=== PATIENT | female | born 1995 ===

== ENCOUNTER 2023-05-21 09:15 | Inpatient (IN) | payer MEDICAID ==
[~2023-05-21] VITALS: Ht 170.2 cm; Wt 61.2 kg
[2023-05-21] MEDS ORDERED: HALOPERIDOL LACTATE 5 MG/ML VIAL IM ONE (13:15)
[2023-05-21] MEDS ORDERED: DiphenhydrAMINE HCL 50 MG/ML VIAL IM ONE (13:15)
[2023-05-21] MEDS ORDERED: LORazepam 2 MG/ML VIAL IM ONE (13:15)
[2023-05-21 14:57] LABS: COVID AG,FIA SOURCE NASAL SWAB
[2023-05-21 15:22] LABS: SARS-COV2 (COVID) ANTIGEN,FIA Negative (Negative)
[2023-05-21 18:30] VITALS: RESP 18
[2023-05-21 21:40] VITALS: RESP 18
[2023-05-22] MEDS ORDERED: PETROLATUM,WHITE 28 GM JELLY TP PRN (05:15)
[2023-05-22] MEDS ORDERED: IBUPROFEN 600 MG TABLET PO PRN (05:15)
[2023-05-22] MEDS ORDERED: DOCUSATE SODIUM 100 MG CAPSULE PO PRN (05:15)
[2023-05-22] MEDS ORDERED: BENZOCAINE/MENTHOL LOZENGE PO PRN (05:15)
[2023-05-22] MEDS ORDERED: CloNIDine HCL 0.1 MG TABLET PO PRN (05:15)
[2023-05-22] MEDS ORDERED: MAGNESIUM HYDROXIDE SUSPENSION 30 ML UDCUP PO PRN (05:15)
[2023-05-22] MEDS ORDERED: LOPERAMIDE HCL 2 MG CAPSULE PO PRN (05:15)
[2023-05-22] MEDS ORDERED: OMEPRAZOLE 20 MG CAPSULE PO PRN (05:15)
[2023-05-22] MEDS ORDERED: ONDANSETRON HCL 4 MG TABLET PO PRN (05:15)
[2023-05-22] MEDS ORDERED: BACITRACIN 28 GM OINTMENT TP PRN (05:15)
[2023-05-22] MEDS ORDERED: ACETAMINOPHEN 325 MG TABLET PO PRN (05:15)
[2023-05-22] MEDS ORDERED: MAG HYDROX/ALUMINUM HYD/SIMETH ES 30 ML SUSPENSION UDCUP PO PRN (05:15)
[2023-05-22 08:30] VITALS: RESP 20; TEMP 97.3
[2023-05-22] MEDS: LITHIUM CARBONATE 300 MG CAPSULE PO SCH (16:23)
[2023-05-22] MEDS: DIVALPROEX SODIUM 500 MG DR TABLET PO SCH (16:23)
[2023-05-22] MEDS: RisperiDONE 1 MG TABLET PO SCH (16:23)
[2023-05-22 20:39] VITALS: RESP 18
[2023-05-23] MEDS: RisperiDONE 1 MG TABLET PO SCH ×3 (08:18→17:00)
[2023-05-23] MEDS: LITHIUM CARBONATE 300 MG CAPSULE PO SCH ×3 (08:18→17:00)
[2023-05-23] MEDS: DIVALPROEX SODIUM 500 MG DR TABLET PO SCH ×3 (08:18→17:00)
[2023-05-23 09:14] VITALS: RESP 18; TEMP 98
[2023-05-23] MEDS ORDERED: HALOPERIDOL LACTATE 5 MG/ML VIAL IM ONE (13:30)
[2023-05-23] MEDS ORDERED: LORazepam 2 MG/ML VIAL IM ONE (13:30)
[2023-05-23] MEDS ORDERED: DiphenhydrAMINE HCL 50 MG/ML VIAL IM ONE (13:30)
[2023-05-23] MEDS ORDERED: HALOPERIDOL LACTATE 5 MG/ML VIAL ONE (13:37)
[2023-05-23] MEDS ORDERED: DiphenhydrAMINE HCL 50 MG/ML VIAL ONE (13:37)
[2023-05-23] MEDS ORDERED: LORazepam 2 MG/ML VIAL ONE (13:37)
[2023-05-23 20:30] VITALS: PULSE 75; RESP 17; TEMP 98
[2023-05-24 09:45] VITALS: RESP 18
[2023-05-24] MEDS: DIVALPROEX SODIUM 500 MG DR TABLET PO SCH ×2 (12:30→18:32)
[2023-05-24] MEDS: LITHIUM CARBONATE 300 MG CAPSULE PO SCH ×2 (12:30→18:32)
[2023-05-24] MEDS: RisperiDONE 1 MG TABLET PO SCH ×2 (12:30→18:32)
[2023-05-24 20:09] VITALS: RESP 18
[2023-05-25 08:52] VITALS: RESP 17; TEMP 97.8
[2023-05-25] MEDS: DIVALPROEX SODIUM 500 MG DR TABLET PO SCH ×2 (09:02→16:07)
[2023-05-25] MEDS: LITHIUM CARBONATE 300 MG CAPSULE PO SCH ×2 (09:02→16:07)
[2023-05-25] MEDS: RisperiDONE 1 MG TABLET PO SCH ×2 (09:02→16:07)
[2023-05-25] MEDS: HALOPERIDOL 5 MG TABLET PO PRN (15:02)
[2023-05-25] MEDS: LORazepam 2 MG TABLET PO PRN (15:02)
[2023-05-25 20:07] VITALS: RESP 18; TEMP 97.9
[2023-05-26] MEDS: DIVALPROEX SODIUM 500 MG DR TABLET PO SCH ×2 (08:52→16:43)
[2023-05-26] MEDS: LITHIUM CARBONATE 300 MG CAPSULE PO SCH ×2 (08:52→16:43)
[2023-05-26] MEDS: RisperiDONE 1 MG TABLET PO SCH ×2 (08:52→16:43)
[2023-05-26 09:00] VITALS: BP 108/60; PULSE 89; RESP 18; TEMP 97.2
[2023-05-26] MEDS: HALOPERIDOL 5 MG TABLET PO PRN (15:20)
[2023-05-26] MEDS: LORazepam 2 MG TABLET PO PRN (15:20)
[2023-05-26 20:53] VITALS: RESP 18
[2023-05-27] MEDS: DIVALPROEX SODIUM 500 MG DR TABLET PO SCH ×2 (08:36→16:16)
[2023-05-27] MEDS: RisperiDONE 1 MG TABLET PO SCH ×2 (08:36→16:17)
[2023-05-27] MEDS: LITHIUM CARBONATE 300 MG CAPSULE PO SCH ×2 (08:36→16:17)
[2023-05-27 10:43] VITALS: BP 110/64; PULSE 84; RESP 18; TEMP 97
[2023-05-27] MEDS: LORazepam 2 MG TABLET PO PRN (15:31)
[2023-05-27] MEDS: HALOPERIDOL 5 MG TABLET PO PRN (15:31)
[2023-05-27] MEDS: NICOTINE 21 MG/24 HOUR PATCH TD SCH (16:16)
[2023-05-27 21:19] VITALS: BP 118/72; PULSE 81; RESP 19; TEMP 97.5
[2023-05-28 08:16] VITALS: BP 110/70; PULSE 80; RESP 18; TEMP 97.8
[2023-05-28] MEDS: DIVALPROEX SODIUM 500 MG DR TABLET PO SCH ×2 (08:27→16:49)
[2023-05-28] MEDS: RisperiDONE 1 MG TABLET PO SCH ×2 (08:27→16:49)
[2023-05-28] MEDS: NICOTINE 21 MG/24 HOUR PATCH TD SCH (08:27)
[2023-05-28] MEDS: LITHIUM CARBONATE 300 MG CAPSULE PO SCH ×2 (08:27→16:49)
[2023-05-28] MEDS: LORazepam 2 MG TABLET PO PRN (10:22)
[2023-05-28] MEDS: HALOPERIDOL 5 MG TABLET PO PRN (10:22)
[2023-05-28 21:35] VITALS: RESP 18
[2023-05-29] MEDS: DIVALPROEX SODIUM 500 MG DR TABLET PO SCH ×2 (08:10→16:10)
[2023-05-29] MEDS: NICOTINE 21 MG/24 HOUR PATCH TD SCH (08:10)
[2023-05-29] MEDS: LITHIUM CARBONATE 300 MG CAPSULE PO SCH ×2 (08:10→16:10)
[2023-05-29] MEDS: RisperiDONE 1 MG TABLET PO SCH ×2 (08:10→16:10)
[2023-05-29 08:27] VITALS: BP 108/59; PULSE 91; RESP 18; TEMP 97.6
[2023-05-29 12:24] LABS: APPEARANCE,URINE CLEAR (CLEAR); BILIRUBIN,URINE NEGATIVE (NEGATIVE); COLOR,URINE COLORLESS (YELLOW); GLUCOSE, URINE (UA) NEGATIVE (NEGATIVE); KETONES,URINE NEGATIVE (NEGATIVE); LEUKOCYTE ESTERASE ,URINE NEGATIVE (NEGATIVE); NITRATE,URINE NEGATIVE (NEGATIVE); OCCULT BLOOD,URINE NEGATIVE (NEGATIVE); PROTEIN,URINE NEGATIVE (NEGATIVE); SPECIFIC GRAVITIY, URINE 1.012 (1.003-1.030); UROBILINOGEN,URINE <=1.0 mg/dL (<=1.0)
[2023-05-29 12:30] LABS: ALCOHOL, URINE DRUG SCREEN NEGATIVE (NEGATIVE); AMPHET/METH SCREEN,URINE NEGATIVE (NEGATIVE); BARBITURATE SCREEN, URINE NEGATIVE (NEGATIVE); BENZODIAZEPINES SCREEN,URINE NEGATIVE (NEGATIVE); CANNABINOID SCREEN,URINE NEGATIVE (NEGATIVE); COCAINE SCREEN,URINE NEGATIVE (NEGATIVE); METHADONE SCREEN, URINE NEGATIVE (NEGATIVE); OPIATE SCREEN,URINE NEGATIVE (NEGATIVE); PHENCYCLIDINE SCREEN,URINE NEGATIVE (NEGATIVE)
[2023-05-29 12:52] LABS: HCG,QUAL URINE NEGATIVE (NEGATIVE)
[2023-05-29] MEDS: HALOPERIDOL 5 MG TABLET PO PRN (13:16)
[2023-05-29] MEDS: LORazepam 2 MG TABLET PO PRN (13:16)
[2023-05-29 20:51] VITALS: RESP 18
[2023-05-30] MEDS: HALOPERIDOL 5 MG TABLET PO PRN (01:20)
[2023-05-30] MEDS: LORazepam 2 MG TABLET PO PRN (01:20)
[2023-05-30] MEDS: RisperiDONE 1 MG TABLET PO SCH ×2 (08:37→16:34)
[2023-05-30] MEDS: DIVALPROEX SODIUM 500 MG DR TABLET PO SCH ×2 (08:37→16:34)
[2023-05-30] MEDS: LITHIUM CARBONATE 300 MG CAPSULE PO SCH ×2 (08:37→16:34)
[2023-05-30] MEDS: NICOTINE 21 MG/24 HOUR PATCH TD SCH (08:46)
[2023-05-30 09:08] VITALS: BP 105/45; PULSE 92; RESP 18; TEMP 98.2
[2023-05-30 20:27] VITALS: RESP 18
[2023-05-31 08:00] VITALS: BP 98/70; PULSE 61; RESP 18; TEMP 97.8
[2023-05-31] MEDS: RisperiDONE 1 MG TABLET PO SCH ×2 (08:32→16:12)
[2023-05-31] MEDS: LITHIUM CARBONATE 300 MG CAPSULE PO SCH ×2 (08:32→16:12)
[2023-05-31] MEDS: DIVALPROEX SODIUM 500 MG DR TABLET PO SCH ×2 (08:33→16:12)
[2023-05-31] MEDS: LORazepam 2 MG TABLET PO PRN ×2 (08:33→23:04)
[2023-05-31] MEDS: NICOTINE 21 MG/24 HOUR PATCH TD SCH (08:33)
[2023-05-31 21:25] VITALS: BP 100/70; PULSE 65; RESP 17; TEMP 97.9
[2023-05-31] MEDS: HALOPERIDOL 5 MG TABLET PO PRN (23:04)
[2023-06-01] MEDS ORDERED: LORazepam 2 MG/ML VIAL ONE (01:10)
[2023-06-01] MEDS ORDERED: HALOPERIDOL LACTATE 5 MG/ML VIAL ONE (01:11)
[2023-06-01] MEDS ORDERED: DiphenhydrAMINE HCL 50 MG/ML VIAL ONE (01:12)
[2023-06-01] MEDS ORDERED: HALOPERIDOL LACTATE 5 MG/ML VIAL IM ONE (01:30)
[2023-06-01] MEDS ORDERED: LORazepam 2 MG/ML VIAL IM ONE (01:30)
[2023-06-01] MEDS ORDERED: DiphenhydrAMINE HCL 50 MG/ML VIAL IM ONE (01:30)
[2023-06-01 07:09] LABS: LITHIUM 0.36 mmol/L (0.60-1.20)
[2023-06-01 09:03] VITALS: RESP 18
[2023-06-01] MEDS: RisperiDONE 1 MG TABLET PO SCH ×2 (10:51→16:29)
[2023-06-01] MEDS: NICOTINE 21 MG/24 HOUR PATCH TD SCH (10:51)
[2023-06-01] MEDS: DIVALPROEX SODIUM 500 MG DR TABLET PO SCH ×2 (10:51→16:29)
[2023-06-01] MEDS: LITHIUM CARBONATE 300 MG CAPSULE PO SCH ×2 (10:51→16:29)
[2023-06-01 20:27] VITALS: RESP 19; TEMP 97.6
[2023-06-02 08:28] VITALS: BP 138/85; PULSE 68; RESP 17; TEMP 97.6
[2023-06-02] MEDS: LITHIUM CARBONATE 300 MG CAPSULE PO SCH ×2 (08:51→16:21)
[2023-06-02] MEDS: DIVALPROEX SODIUM 500 MG DR TABLET PO SCH ×2 (08:51→16:21)
[2023-06-02] MEDS: RisperiDONE 1 MG TABLET PO SCH ×2 (08:51→16:21)
[2023-06-02] MEDS: NICOTINE 21 MG/24 HOUR PATCH TD SCH (08:52)
[2023-06-02] MEDS: HALOPERIDOL 5 MG TABLET PO PRN (12:51)
[2023-06-02] MEDS: LORazepam 2 MG TABLET PO PRN (12:51)
[2023-06-02 21:45] VITALS: RESP 18
[2023-06-03] MEDS: RisperiDONE 1 MG TABLET PO SCH ×2 (08:34→17:15)
[2023-06-03] MEDS: DIVALPROEX SODIUM 500 MG DR TABLET PO SCH ×2 (08:34→17:15)
[2023-06-03] MEDS: NICOTINE 21 MG/24 HOUR PATCH TD SCH (08:34)
[2023-06-03] MEDS: LITHIUM CARBONATE 300 MG CAPSULE PO SCH ×2 (08:34→17:15)
[2023-06-03] MEDS: LORazepam 2 MG TABLET PO PRN (08:40)
[2023-06-03 10:39] VITALS: BP 101/58; PULSE 86; RESP 18; TEMP 96.8
[2023-06-03] MEDS: ZOLPIDEM TARTRATE 10 MG TABLET PO PRN (22:15)
[2023-06-03 22:43] VITALS: BP 136/81; PULSE 91; RESP 18; TEMP 96.9
[2023-06-04] MEDS: LITHIUM CARBONATE 300 MG CAPSULE PO SCH ×3 (08:39→16:17)
[2023-06-04] MEDS: RisperiDONE 1 MG TABLET PO SCH (08:39)
[2023-06-04] MEDS: DIVALPROEX SODIUM 500 MG DR TABLET PO SCH ×2 (08:39→16:16)
[2023-06-04] MEDS: NICOTINE 21 MG/24 HOUR PATCH TD SCH (08:40)
[2023-06-04 08:42] VITALS: BP 163/72; PULSE 99; RESP 18; TEMP 97.8
[2023-06-04] MEDS: HALOPERIDOL 5 MG TABLET PO PRN (09:37)
[2023-06-04] MEDS: LORazepam 2 MG TABLET PO PRN (09:37)
[2023-06-04] MEDS: RisperiDONE 3 MG TABLET PO SCH (16:17)
[2023-06-04 22:01] VITALS: RESP 18
[2023-06-05 08:12] VITALS: BP 123/74; PULSE 90; RESP 18; TEMP 97.6
[2023-06-05] MEDS: DIVALPROEX SODIUM 500 MG DR TABLET PO SCH ×3 (08:59→16:41)
[2023-06-05] MEDS: NICOTINE 21 MG/24 HOUR PATCH TD SCH (08:59)
[2023-06-05] MEDS: RisperiDONE 3 MG TABLET PO SCH ×2 (08:59→16:41)
[2023-06-05] MEDS: LITHIUM CARBONATE 300 MG CAPSULE PO SCH ×3 (08:59→16:41)
[2023-06-05 21:27] VITALS: BP 120/80; PULSE 85; RESP 19; TEMP 98
[2023-06-06 08:31] VITALS: BP 99/60; PULSE 79; RESP 17; TEMP 97.6
[2023-06-06] MEDS: DIVALPROEX SODIUM 500 MG DR TABLET PO SCH ×3 (08:43→16:45)
[2023-06-06] MEDS: RisperiDONE 3 MG TABLET PO SCH ×2 (08:43→16:45)
[2023-06-06] MEDS: LITHIUM CARBONATE 300 MG CAPSULE PO SCH ×3 (08:43→16:45)
[2023-06-06] MEDS: NICOTINE 21 MG/24 HOUR PATCH TD SCH (08:45)
[2023-06-06] MEDS: HALOPERIDOL 5 MG TABLET PO PRN (12:01)
[2023-06-06] MEDS: LORazepam 2 MG TABLET PO PRN (12:01)
[2023-06-06] MEDS ORDERED: PALIPERIDONE PALMITATE 234 MG/1.5 ML SYRINGE IM ONE (13:30)
[2023-06-06 22:15] VITALS: RESP 18
[2023-06-07 00:33] VITALS: RESP 18; TEMP 97.6
[2023-06-07 04:14] VITALS: RESP 17; TEMP 97.7
[2023-06-07 08:16] VITALS: BP 104/51; PULSE 72; RESP 17; TEMP 98.8
[2023-06-07] MEDS: LITHIUM CARBONATE 300 MG CAPSULE PO SCH ×3 (09:07→16:28)
[2023-06-07] MEDS: DIVALPROEX SODIUM 500 MG DR TABLET PO SCH ×3 (09:07→16:28)
[2023-06-07] MEDS: RisperiDONE 3 MG TABLET PO SCH ×2 (09:08→16:28)
[2023-06-07] MEDS: NICOTINE 21 MG/24 HOUR PATCH TD SCH (09:08)
[2023-06-07 11:27] LABS: COVID AG,FIA SOURCE NASAL SWAB
[2023-06-07 12:29] LABS: SARS-COV2 (COVID) ANTIGEN,FIA Negative (Negative)
[2023-06-07 12:44] VITALS: RESP 17; TEMP 98.9
[2023-06-07 16:34] VITALS: RESP 18; TEMP 98.1
[2023-06-07] MEDS: ZOLPIDEM TARTRATE 10 MG TABLET PO PRN (20:34)
[2023-06-07 21:04] VITALS: BP 130/80; PULSE 97; RESP 18; TEMP 97.8
[2023-06-07] MEDS: HALOPERIDOL 5 MG TABLET PO PRN (22:45)
[2023-06-07] MEDS: LORazepam 2 MG TABLET PO PRN (22:45)
[2023-06-08 01:22] VITALS: RESP 18
[2023-06-08 05:41] VITALS: RESP 18
[2023-06-08 08:15] VITALS: RESP 17; TEMP 98
[2023-06-08] MEDS: DIVALPROEX SODIUM 500 MG DR TABLET PO SCH ×3 (09:26→16:22)
[2023-06-08] MEDS: RisperiDONE 3 MG TABLET PO SCH ×2 (09:26→16:22)
[2023-06-08] MEDS: NICOTINE 21 MG/24 HOUR PATCH TD SCH (09:26)
[2023-06-08] MEDS: LITHIUM CARBONATE 300 MG CAPSULE PO SCH ×3 (09:26→16:22)
[2023-06-08 14:08] VITALS: RESP 17; TEMP 98.4
[2023-06-08 16:42] VITALS: RESP 18; TEMP 97.6
[2023-06-08 20:09] VITALS: RESP 18; TEMP 96.9
[2023-06-09 00:11] VITALS: RESP 18
[2023-06-09 05:09] VITALS: RESP 18
[2023-06-09 08:13] VITALS: BP 99/55; PULSE 76; RESP 17; TEMP 98.3
[2023-06-09] MEDS: RisperiDONE 3 MG TABLET PO SCH ×2 (08:17→16:22)
[2023-06-09] MEDS: DIVALPROEX SODIUM 500 MG DR TABLET PO SCH ×3 (08:17→16:22)
[2023-06-09] MEDS: NICOTINE 21 MG/24 HOUR PATCH TD SCH (08:17)
[2023-06-09] MEDS: LITHIUM CARBONATE 300 MG CAPSULE PO SCH ×3 (08:17→16:22)
[2023-06-09 12:35] VITALS: TEMP 97.4
[2023-06-09 16:08] VITALS: RESP 18; TEMP 98.2
[2023-06-09 21:12] VITALS: RESP 18
[2023-06-10 00:24] VITALS: RESP 18
[2023-06-10 04:04] VITALS: RESP 18
[2023-06-10] MEDS: RisperiDONE 3 MG TABLET PO SCH ×2 (07:58→16:52)
[2023-06-10] MEDS: DIVALPROEX SODIUM 500 MG DR TABLET PO SCH ×3 (07:59→16:50)
[2023-06-10] MEDS: LITHIUM CARBONATE 300 MG CAPSULE PO SCH ×3 (07:59→16:50)
[2023-06-10] MEDS: NICOTINE 21 MG/24 HOUR PATCH TD SCH (08:01)
[2023-06-10] MEDS: LORazepam 2 MG TABLET PO PRN (08:01)
[2023-06-10 09:10] VITALS: BP 103/60; PULSE 96; RESP 17; TEMP 97.3
[2023-06-10 15:36] VITALS: RESP 18; TEMP 97.5
[2023-06-10 17:31] VITALS: TEMP 97.6
[2023-06-10 19:06] LABS: COVID AG,FIA SOURCE NASAL SWAB
[2023-06-10 19:23] LABS: SARS-COV2 (COVID) ANTIGEN,FIA Negative (Negative)
[2023-06-10 20:00] VITALS: BP 106/62; PULSE 92; RESP 18; TEMP 97.4
[2023-06-11 00:02] VITALS: RESP 18
[2023-06-11 04:31] VITALS: RESP 18
[2023-06-11] MEDS: LITHIUM CARBONATE 300 MG CAPSULE PO SCH ×3 (08:55→17:02)
[2023-06-11] MEDS: RisperiDONE 3 MG TABLET PO SCH ×2 (08:55→17:02)
[2023-06-11] MEDS: DIVALPROEX SODIUM 500 MG DR TABLET PO SCH ×3 (08:55→17:02)
[2023-06-11] MEDS: NICOTINE 21 MG/24 HOUR PATCH TD SCH (09:00)
[2023-06-11 09:03] VITALS: BP 95/49; PULSE 80; RESP 16; TEMP 98
[2023-06-11 12:30] VITALS: TEMP 98
[2023-06-11 16:13] VITALS: TEMP 97.9
[2023-06-11 20:47] VITALS: BP 102/60; PULSE 82; RESP 16; TEMP 97.8
[2023-06-11] MEDS: ZOLPIDEM TARTRATE 10 MG TABLET PO PRN (21:19)
[2023-06-12 00:10] VITALS: RESP 16
[2023-06-12 04:12] VITALS: RESP 16
[2023-06-12] MEDS: NICOTINE 21 MG/24 HOUR PATCH TD SCH (08:19)
[2023-06-12] MEDS: DIVALPROEX SODIUM 500 MG DR TABLET PO SCH ×3 (08:19→16:47)
[2023-06-12] MEDS: RisperiDONE 3 MG TABLET PO SCH ×2 (08:19→16:47)
[2023-06-12] MEDS: LITHIUM CARBONATE 300 MG CAPSULE PO SCH ×3 (08:19→16:47)
[2023-06-12 09:49] VITALS: BP 130/75; PULSE 76; RESP 18; TEMP 97.6
[2023-06-12 13:13] VITALS: TEMP 98.3
[2023-06-12 18:08] VITALS: RESP 18; TEMP 99; TEMP 99.4
[2023-06-12 20:14] VITALS: BP 100/65; PULSE 96; RESP 18; TEMP 98.9
[2023-06-13] MEDS: ZOLPIDEM TARTRATE 10 MG TABLET PO PRN (02:04)
[2023-06-13 08:28] VITALS: BP 101/55; PULSE 87; RESP 18; TEMP 97.6
[2023-06-13] MEDS: DIVALPROEX SODIUM 500 MG DR TABLET PO SCH ×3 (08:31→16:04)
[2023-06-13] MEDS: RisperiDONE 3 MG TABLET PO SCH ×2 (08:31→16:04)
[2023-06-13] MEDS: LITHIUM CARBONATE 300 MG CAPSULE PO SCH ×3 (08:31→16:04)
[2023-06-13] MEDS: NICOTINE 21 MG/24 HOUR PATCH TD SCH (08:31)
[2023-06-13 12:33] VITALS: RESP 18; TEMP 98
[2023-06-13 16:18] VITALS: RESP 18; TEMP 97.7
[2023-06-13 20:30] VITALS: BP 129/66; PULSE 67; RESP 18; TEMP 97.4
[2023-06-14 00:51] VITALS: RESP 18; TEMP 97.6
[2023-06-14 04:19] VITALS: RESP 18; TEMP 98
[2023-06-14] MEDS: RisperiDONE 3 MG TABLET PO SCH ×2 (08:29→16:38)
[2023-06-14] MEDS: LITHIUM CARBONATE 300 MG CAPSULE PO SCH ×3 (08:29→16:38)
[2023-06-14] MEDS: DIVALPROEX SODIUM 500 MG DR TABLET PO SCH ×3 (08:29→16:38)
[2023-06-14] MEDS: NICOTINE 21 MG/24 HOUR PATCH TD SCH (08:32)
[2023-06-14 08:43] VITALS: BP 99/60; PULSE 74; RESP 17; TEMP 98.1
[2023-06-14 12:10] VITALS: RESP 18; TEMP 97.9
[2023-06-14 16:27] VITALS: RESP 18; TEMP 98
[2023-06-14 20:32] VITALS: BP 134/81; PULSE 77; RESP 18; TEMP 97.8
[2023-06-15 05:37] VITALS: RESP 20; TEMP 97.3
[2023-06-15 08:16] VITALS: BP 100/61; PULSE 74; RESP 18; TEMP 98.5
[2023-06-15] MEDS: DIVALPROEX SODIUM 500 MG DR TABLET PO SCH ×3 (08:20→16:13)
[2023-06-15] MEDS: LITHIUM CARBONATE 300 MG CAPSULE PO SCH ×3 (08:20→16:13)
[2023-06-15] MEDS: RisperiDONE 3 MG TABLET PO SCH ×2 (08:20→16:13)
[2023-06-15 12:24] VITALS: RESP 18; TEMP 98.9
[2023-06-15 16:34] VITALS: RESP 18; TEMP 98.6
[2023-06-15 20:22] VITALS: BP 107/63; PULSE 68; RESP 18; TEMP 97.5
[2023-06-15] MEDS: ZOLPIDEM TARTRATE 10 MG TABLET PO PRN (21:27)
[2023-06-16 00:12] VITALS: TEMP 97.6
[2023-06-16 05:09] VITALS: TEMP 98
[2023-06-16 08:18] VITALS: BP 99/60; PULSE 78; RESP 18; TEMP 97.6
[2023-06-16] MEDS: LITHIUM CARBONATE 300 MG CAPSULE PO SCH ×3 (09:06→16:09)
[2023-06-16] MEDS: DIVALPROEX SODIUM 500 MG DR TABLET PO SCH ×3 (09:06→16:09)
[2023-06-16] MEDS: RisperiDONE 3 MG TABLET PO SCH ×2 (09:06→16:09)
[2023-06-16 11:13] LABS: COVID AG,FIA SOURCE NASAL SWAB
[2023-06-16 12:02] LABS: SARS-COV2 (COVID) ANTIGEN,FIA Negative (Negative)
[2023-06-16] MEDS: HALOPERIDOL 5 MG TABLET PO PRN ×2 (12:10→20:51)
[2023-06-16 13:05] VITALS: RESP 18; TEMP 98.4
[2023-06-16 17:14] VITALS: RESP 18; TEMP 98
[2023-06-16 21:00] VITALS: BP 99/60; PULSE 90; RESP 18; TEMP 98.3
[2023-06-17 01:35] VITALS: RESP 18
[2023-06-17 04:09] VITALS: RESP 18
[2023-06-17] MEDS: LITHIUM CARBONATE 300 MG CAPSULE PO SCH ×3 (08:51→16:39)
[2023-06-17] MEDS: RisperiDONE 3 MG TABLET PO SCH ×2 (08:51→16:39)
[2023-06-17] MEDS: DIVALPROEX SODIUM 500 MG DR TABLET PO SCH ×3 (08:51→16:39)
[2023-06-17 09:57] VITALS: BP 110/76; PULSE 75; RESP 17; TEMP 97.8
[2023-06-17 12:08] VITALS: RESP 18; TEMP 97.9
[2023-06-17 17:58] VITALS: RESP 18; TEMP 98.2
[2023-06-17] MEDS: ZOLPIDEM TARTRATE 10 MG TABLET PO PRN (20:03)
[2023-06-17 21:11] VITALS: BP 116/71; RESP 18; TEMP 98
[2023-06-18 00:17] VITALS: RESP 18
[2023-06-18 05:39] VITALS: RESP 18
[2023-06-18] MEDS: LITHIUM CARBONATE 300 MG CAPSULE PO SCH ×3 (08:19→16:28)
[2023-06-18] MEDS: RisperiDONE 3 MG TABLET PO SCH ×2 (08:19→16:28)
[2023-06-18] MEDS: DIVALPROEX SODIUM 500 MG DR TABLET PO SCH ×3 (08:19→16:28)
[2023-06-18 08:49] VITALS: BP 94/60; PULSE 69; RESP 16; TEMP 97.4
[2023-06-18 12:51] VITALS: RESP 17; TEMP 97.8
[2023-06-18] MEDS ORDERED: TUBERCULIN, PURIFIED PROTEIN DERIVATIVE 5 TU/0.1 ML SYRINGE ID ONE (14:30)
[2023-06-18 17:18] VITALS: RESP 17; TEMP 98
[2023-06-18] MEDS: ZOLPIDEM TARTRATE 10 MG TABLET PO PRN (20:28)
[2023-06-18 21:46] VITALS: BP 116/65; PULSE 81; RESP 18; TEMP 98.1
[2023-06-19 00:09] VITALS: RESP 16
[2023-06-19 04:46] VITALS: RESP 16
[2023-06-19 07:53] VITALS: BP 93/48; PULSE 67; RESP 16; TEMP 98.1
[2023-06-19] MEDS: DIVALPROEX SODIUM 500 MG DR TABLET PO SCH ×3 (08:11→16:37)
[2023-06-19] MEDS: LITHIUM CARBONATE 300 MG CAPSULE PO SCH ×3 (08:11→16:37)
[2023-06-19] MEDS: RisperiDONE 3 MG TABLET PO SCH ×2 (08:11→16:37)
[2023-06-19 12:08] VITALS: RESP 16; TEMP 98.3
[2023-06-19 17:43] VITALS: RESP 18; TEMP 98
[2023-06-19] MEDS: ZOLPIDEM TARTRATE 10 MG TABLET PO PRN (20:30)
[2023-06-19 21:27] VITALS: BP 152/83; PULSE 76; RESP 19; TEMP 97.6
[2023-06-20 08:30] VITALS: BP 96/60; PULSE 67; RESP 18; TEMP 98.7
[2023-06-20] MEDS: RisperiDONE 3 MG TABLET PO SCH ×2 (08:55→16:11)
[2023-06-20] MEDS: LITHIUM CARBONATE 300 MG CAPSULE PO SCH ×3 (08:55→16:11)
[2023-06-20] MEDS: DIVALPROEX SODIUM 500 MG DR TABLET PO SCH ×3 (08:55→16:11)
[2023-06-20 12:11] VITALS: TEMP 97.9
[2023-06-20 16:40] VITALS: TEMP 98.1
[2023-06-20 20:07] VITALS: BP 100/80; PULSE 65; RESP 17; TEMP 98.1
[2023-06-20] MEDS: ZOLPIDEM TARTRATE 10 MG TABLET PO PRN (21:05)
[2023-06-20] MEDS: HALOPERIDOL 5 MG TABLET PO PRN (21:05)
[2023-06-21 00:46] VITALS: TEMP 98
[2023-06-21 04:08] VITALS: RESP 18; TEMP 97.9
[2023-06-21] MEDS: DIVALPROEX SODIUM 500 MG DR TABLET PO SCH ×3 (08:37→16:59)
[2023-06-21] MEDS: RisperiDONE 3 MG TABLET PO SCH ×2 (08:37→17:00)
[2023-06-21] MEDS: LITHIUM CARBONATE 300 MG CAPSULE PO SCH ×3 (08:37→16:59)
[2023-06-21 12:48] VITALS: BP 117/73; PULSE 56; RESP 18; TEMP 97.6
[2023-06-21 13:19] LABS: COVID AG,FIA SOURCE NASAL SWAB
[2023-06-21 13:51] LABS: SARS-COV2 (COVID) ANTIGEN,FIA Negative (Negative)
[2023-06-21 16:49] VITALS: RESP 17; TEMP 98.2
[2023-06-21] MEDS: ZOLPIDEM TARTRATE 10 MG TABLET PO PRN (20:36)
[2023-06-21] MEDS: LORazepam 2 MG TABLET PO PRN (20:36)
[2023-06-21 20:42] VITALS: BP 121/72; PULSE 64; RESP 18; TEMP 97.9
[2023-06-22 05:12] VITALS: RESP 18; TEMP 97.8
[2023-06-22] MEDS: LITHIUM CARBONATE 300 MG CAPSULE PO SCH ×3 (08:22→16:33)
[2023-06-22] MEDS: RisperiDONE 3 MG TABLET PO SCH ×2 (08:22→16:33)
[2023-06-22] MEDS: DIVALPROEX SODIUM 500 MG DR TABLET PO SCH ×3 (08:22→16:33)
[2023-06-22 08:51] VITALS: BP 91/52; PULSE 63; RESP 17; TEMP 97.6
[2023-06-22 13:18] VITALS: RESP 18; TEMP 98.4
[2023-06-22 16:13] VITALS: RESP 18; TEMP 98.2
[2023-06-22] MEDS: ZOLPIDEM TARTRATE 10 MG TABLET PO PRN (21:04)
[2023-06-22] MEDS: LORazepam 2 MG TABLET PO PRN (21:04)
[2023-06-22 22:00] VITALS: BP 100/65; PULSE 73; RESP 18; TEMP 97.5
[2023-06-23 05:41] VITALS: TEMP 98
[2023-06-23 08:06] VITALS: BP 92/53; PULSE 62; RESP 16; TEMP 97.8
[2023-06-23] MEDS: LITHIUM CARBONATE 300 MG CAPSULE PO SCH ×3 (08:28→16:31)
[2023-06-23] MEDS: DIVALPROEX SODIUM 500 MG DR TABLET PO SCH ×3 (08:28→16:31)
[2023-06-23] MEDS: RisperiDONE 3 MG TABLET PO SCH ×2 (08:29→16:31)
[2023-06-23 12:10] VITALS: RESP 17; TEMP 98.1
[2023-06-23 16:14] VITALS: RESP 17; TEMP 97.9
[2023-06-23 20:03] VITALS: BP 100/70; PULSE 64; RESP 17; TEMP 97.9
[2023-06-24 00:45] VITALS: RESP 18; TEMP 98
[2023-06-24 05:20] VITALS: RESP 17; TEMP 97.9
[2023-06-24] MEDS: RisperiDONE 3 MG TABLET PO SCH ×2 (08:34→17:02)
[2023-06-24] MEDS: LITHIUM CARBONATE 300 MG CAPSULE PO SCH ×3 (08:34→17:02)
[2023-06-24] MEDS: DIVALPROEX SODIUM 500 MG DR TABLET PO SCH ×3 (08:34→17:02)
[2023-06-24 09:41] VITALS: BP 109/57; PULSE 77; RESP 18; TEMP 98
[2023-06-24 13:17] VITALS: TEMP 98
[2023-06-24 17:07] VITALS: TEMP 98.4
[2023-06-24 20:22] VITALS: RESP 18
[2023-06-25 00:41] VITALS: RESP 16; TEMP 97.5
[2023-06-25 04:22] VITALS: RESP 18
[2023-06-25] MEDS: RisperiDONE 3 MG TABLET PO SCH ×2 (07:53→16:07)
[2023-06-25] MEDS: DIVALPROEX SODIUM 500 MG DR TABLET PO SCH ×3 (07:53→16:07)
[2023-06-25] MEDS: LITHIUM CARBONATE 300 MG CAPSULE PO SCH ×3 (07:53→16:07)
[2023-06-25 08:33] VITALS: BP 109/59; PULSE 63; RESP 19; TEMP 97.1
[2023-06-25 12:28] LABS: COVID AG,FIA SOURCE NASAL SWAB
[2023-06-25 12:49] VITALS: TEMP 97.5
[2023-06-25 13:00] LABS: SARS-COV2 (COVID) ANTIGEN,FIA Negative (Negative)
[2023-06-25 16:12] VITALS: TEMP 97.1
[2023-06-25 20:33] VITALS: BP 98/58; PULSE 76; RESP 18; TEMP 98.9
[2023-06-25] MEDS: ZOLPIDEM TARTRATE 10 MG TABLET PO PRN (21:02)
[2023-06-26 00:30] VITALS: RESP 16; TEMP 97.5
[2023-06-26 05:06] VITALS: RESP 18; TEMP 97.2
[2023-06-26] MEDS: DIVALPROEX SODIUM 500 MG DR TABLET PO SCH ×3 (08:08→16:10)
[2023-06-26] MEDS: RisperiDONE 3 MG TABLET PO SCH ×2 (08:08→16:10)
[2023-06-26] MEDS: LITHIUM CARBONATE 300 MG CAPSULE PO SCH ×3 (08:08→16:10)
[2023-06-26 08:13] VITALS: BP 120/68; PULSE 77; RESP 18; TEMP 97.9
[2023-06-26] MEDS: HALOPERIDOL 5 MG TABLET PO PRN (10:13)
[2023-06-26 12:15] VITALS: TEMP 97.5
[2023-06-26 16:29] VITALS: TEMP 98.2
[2023-06-27] MEDS: LITHIUM CARBONATE 300 MG CAPSULE PO SCH ×3 (08:09→16:32)
[2023-06-27] MEDS: RisperiDONE 3 MG TABLET PO SCH ×2 (08:09→16:32)
[2023-06-27] MEDS: DIVALPROEX SODIUM 500 MG DR TABLET PO SCH ×3 (08:09→16:32)
[2023-06-27 08:29] VITALS: BP 138/82; PULSE 66; RESP 18; TEMP 97.1
[2023-06-27 12:39] VITALS: TEMP 98.7
[2023-06-27 16:15] VITALS: RESP 19; TEMP 98.9
[2023-06-27 20:32] VITALS: BP 102/52; PULSE 76; RESP 18; TEMP 98.1
[2023-06-28] VITALS (7 sets, daily range): BP systolic 95–100; BP diastolic 62–65; PULSE 76–77; RESP 17–18; TEMP 97.7–98.1
[2023-06-28] MEDS: LITHIUM CARBONATE 300 MG CAPSULE PO SCH ×3 (08:02→16:24)
[2023-06-28] MEDS: RisperiDONE 3 MG TABLET PO SCH ×2 (08:02→16:26)
[2023-06-28] MEDS: DIVALPROEX SODIUM 500 MG DR TABLET PO SCH ×3 (08:02→16:25)
[2023-06-29] MEDS: DIVALPROEX SODIUM 500 MG DR TABLET PO SCH ×3 (08:18→16:08)
[2023-06-29] MEDS: LITHIUM CARBONATE 300 MG CAPSULE PO SCH ×3 (08:18→16:08)
[2023-06-29] MEDS: RisperiDONE 3 MG TABLET PO SCH ×2 (08:18→16:08)
[2023-06-29 08:38] VITALS: BP 91/57; PULSE 61; RESP 18; TEMP 97.3
[2023-06-29 20:41] VITALS: RESP 17
[2023-06-29] MEDS: ZOLPIDEM TARTRATE 10 MG TABLET PO PRN (22:47)
[2023-06-30] MEDS: RisperiDONE 3 MG TABLET PO SCH ×2 (08:17→16:24)
[2023-06-30] MEDS: LITHIUM CARBONATE 300 MG CAPSULE PO SCH ×3 (08:17→16:24)
[2023-06-30] MEDS: DIVALPROEX SODIUM 500 MG DR TABLET PO SCH ×3 (08:17→16:24)
[2023-06-30 08:21] VITALS: BP 121/69; PULSE 78; RESP 17; TEMP 98
[2023-06-30 18:55] VITALS: BP 114/72; PULSE 95; RESP 18
[2023-06-30 19:59] VITALS: BP 115/64; PULSE 75; RESP 18; TEMP 98.5
[2023-06-30 20:38] VITALS: BP 115/64; PULSE 75; RESP 18; TEMP 98.5
[2023-07-01] MEDS: LITHIUM CARBONATE 300 MG CAPSULE PO SCH ×3 (08:08→16:09)
[2023-07-01] MEDS: RisperiDONE 3 MG TABLET PO SCH ×2 (08:08→16:09)
[2023-07-01] MEDS: DIVALPROEX SODIUM 500 MG DR TABLET PO SCH ×3 (08:08→16:09)
[2023-07-01 10:03] VITALS: BP 112/68; PULSE 75; RESP 18; TEMP 97.5
[2023-07-01 20:44] VITALS: BP 115/70; PULSE 78; RESP 18; TEMP 98.9
[2023-07-02] MEDS: DIVALPROEX SODIUM 500 MG DR TABLET PO SCH ×3 (07:52→16:25)
[2023-07-02] MEDS: LITHIUM CARBONATE 300 MG CAPSULE PO SCH ×3 (07:52→16:23)
[2023-07-02] MEDS: RisperiDONE 3 MG TABLET PO SCH ×2 (07:52→16:23)
[2023-07-02 08:00] VITALS: BP 106/59; PULSE 83; RESP 18; TEMP 97.4
[2023-07-02 20:40] VITALS: BP 115/62; PULSE 80; RESP 18; TEMP 97.7
[2023-07-03 08:16] VITALS: BP 92/57; PULSE 61; RESP 18; TEMP 97.2
[2023-07-03 08:47] VITALS: BP 102/65; PULSE 89; RESP 18
[2023-07-03] MEDS: LITHIUM CARBONATE 300 MG CAPSULE PO SCH ×3 (08:49→16:19)
[2023-07-03] MEDS: RisperiDONE 3 MG TABLET PO SCH ×2 (08:49→16:19)
[2023-07-03] MEDS: DIVALPROEX SODIUM 500 MG DR TABLET PO SCH ×3 (08:49→16:19)
[2023-07-03] MEDS: ZOLPIDEM TARTRATE 10 MG TABLET PO PRN (21:06)
[2023-07-04] MEDS: DIVALPROEX SODIUM 500 MG DR TABLET PO SCH ×3 (09:59→16:55)
[2023-07-04] MEDS: PALIPERIDONE PALMITATE 234 MG/1.5 ML SYRINGE IM SCH (09:59)
[2023-07-04] MEDS: LITHIUM CARBONATE 300 MG CAPSULE PO SCH ×3 (09:59→16:55)
[2023-07-04] MEDS: RisperiDONE 3 MG TABLET PO SCH ×2 (09:59→16:55)
[2023-07-04 11:36] VITALS: BP 104/59; PULSE 62; RESP 18; TEMP 97.4
[2023-07-04 20:00] VITALS: BP 102/64; PULSE 67; RESP 18; TEMP 97.5
[2023-07-05 08:00] VITALS: BP 90/45; PULSE 89; RESP 18; TEMP 97.4
[2023-07-05] MEDS: LITHIUM CARBONATE 300 MG CAPSULE PO SCH ×3 (08:50→17:13)
[2023-07-05] MEDS: DIVALPROEX SODIUM 500 MG DR TABLET PO SCH ×3 (08:50→17:13)
[2023-07-05] MEDS: RisperiDONE 3 MG TABLET PO SCH ×2 (08:50→17:13)
[2023-07-05 09:00] VITALS: BP 94/72; PULSE 87; RESP 17; TEMP 98.3
[2023-07-05] MEDS: ALBUTEROL SULFATE HFA 90 MCG/PUFF 8 GM INHALER IH PRN (12:19)
[2023-07-05 20:40] VITALS: BP 109/62; PULSE 76; RESP 18; TEMP 97
[2023-07-06] MEDS: LITHIUM CARBONATE 300 MG CAPSULE PO SCH ×3 (08:20→16:18)
[2023-07-06] MEDS: DIVALPROEX SODIUM 500 MG DR TABLET PO SCH ×3 (08:20→16:18)
[2023-07-06] MEDS: RisperiDONE 3 MG TABLET PO SCH ×2 (08:20→16:18)
[2023-07-06 09:03] VITALS: BP 98/53; PULSE 70; RESP 18; TEMP 97.8
[2023-07-06 20:00] VITALS: BP 92/76; PULSE 70; RESP 18; TEMP 97.6
[2023-07-07] MEDS: DIVALPROEX SODIUM 500 MG DR TABLET PO SCH ×3 (08:43→16:20)
[2023-07-07] MEDS: RisperiDONE 3 MG TABLET PO SCH ×2 (08:43→16:20)
[2023-07-07] MEDS: LITHIUM CARBONATE 300 MG CAPSULE PO SCH ×3 (08:43→16:20)
[2023-07-07 08:46] VITALS: BP 107/83; PULSE 71; RESP 19; TEMP 97.6
[2023-07-07] MEDS: ALBUTEROL SULFATE HFA 90 MCG/PUFF 8 GM INHALER IH PRN (16:24)
[2023-07-07 20:02] VITALS: RESP 18
[2023-07-08] MEDS: RisperiDONE 3 MG TABLET PO SCH ×2 (07:58→16:00)
[2023-07-08] MEDS: LITHIUM CARBONATE 300 MG CAPSULE PO SCH ×3 (07:58→16:00)
[2023-07-08] MEDS: DIVALPROEX SODIUM 500 MG DR TABLET PO SCH ×3 (07:58→16:00)
[2023-07-08 08:59] VITALS: BP 113/62; PULSE 70; RESP 18; TEMP 98.1
[2023-07-08 20:15] VITALS: BP 110/70; PULSE 76; RESP 20; TEMP 97.8
[2023-07-09 08:13] VITALS: BP 92/37; PULSE 67; RESP 18; TEMP 98.1
[2023-07-09] MEDS: LITHIUM CARBONATE 300 MG CAPSULE PO SCH ×3 (12:00→19:00)
[2023-07-09] MEDS: DIVALPROEX SODIUM 500 MG DR TABLET PO SCH ×3 (12:00→19:01)
[2023-07-09] MEDS: RisperiDONE 3 MG TABLET PO SCH ×2 (12:00→19:00)
[2023-07-09] MEDS: ALBUTEROL SULFATE HFA 90 MCG/PUFF 8 GM INHALER IH PRN (12:10)
[2023-07-09] MEDS: LORazepam 2 MG TABLET PO PRN (16:26)
[2023-07-09] MEDS: HALOPERIDOL 5 MG TABLET PO PRN (16:26)
[2023-07-09 20:33] VITALS: RESP 18
[2023-07-10] MEDS: RisperiDONE 3 MG TABLET PO SCH ×2 (08:31→16:13)
[2023-07-10] MEDS: LITHIUM CARBONATE 300 MG CAPSULE PO SCH ×3 (08:31→16:13)
[2023-07-10] MEDS: DIVALPROEX SODIUM 500 MG DR TABLET PO SCH ×3 (08:31→16:14)
[2023-07-10 08:58] VITALS: BP 93/51; PULSE 75; RESP 18; TEMP 97.8
[2023-07-10] MEDS: ALBUTEROL SULFATE HFA 90 MCG/PUFF 8 GM INHALER IH PRN (12:43)
[2023-07-10] MEDS: NICOTINE 21 MG/24 HOUR PATCH TD PRN (14:47)
[2023-07-10 20:39] VITALS: BP 131/73; PULSE 86; RESP 18; TEMP 97.9
[2023-07-10] MEDS: ZOLPIDEM TARTRATE 10 MG TABLET PO PRN (22:44)
[2023-07-11] MEDS: ALBUTEROL SULFATE HFA 90 MCG/PUFF 8 GM INHALER IH PRN ×2 (08:01→16:12)
[2023-07-11] MEDS: RisperiDONE 3 MG TABLET PO SCH ×2 (08:02→16:12)
[2023-07-11] MEDS: DIVALPROEX SODIUM 500 MG DR TABLET PO SCH ×3 (08:02→16:12)
[2023-07-11] MEDS: LITHIUM CARBONATE 300 MG CAPSULE PO SCH ×3 (08:02→16:12)
[2023-07-11 08:04] VITALS: BP 104/69; PULSE 74; RESP 18; TEMP 98
[2023-07-11 20:20] VITALS: BP 159/66; PULSE 85; RESP 18; TEMP 97
[2023-07-11] MEDS: ZOLPIDEM TARTRATE 10 MG TABLET PO PRN (23:30)
[2023-07-12 07:49] VITALS: BP 117/72; PULSE 82; RESP 18; TEMP 97.1
[2023-07-12] MEDS: DIVALPROEX SODIUM 500 MG DR TABLET PO SCH ×3 (08:09→16:36)
[2023-07-12] MEDS: LITHIUM CARBONATE 300 MG CAPSULE PO SCH ×3 (08:09→16:36)
[2023-07-12] MEDS: RisperiDONE 3 MG TABLET PO SCH ×2 (08:09→16:36)
[2023-07-12 09:20] VITALS: BP 117/72; PULSE 82; RESP 18; TEMP 97.1
[2023-07-12] MEDS: LORazepam 2 MG TABLET PO PRN (10:45)
[2023-07-12] MEDS: HALOPERIDOL 5 MG TABLET PO PRN (10:45)
[2023-07-13] MEDS: RisperiDONE 3 MG TABLET PO SCH ×2 (08:59→18:31)
[2023-07-13] MEDS: DIVALPROEX SODIUM 500 MG DR TABLET PO SCH ×3 (08:59→18:31)
[2023-07-13] MEDS: LITHIUM CARBONATE 300 MG CAPSULE PO SCH ×3 (08:59→18:31)
[2023-07-13] MEDS: LORazepam 2 MG TABLET PO PRN (09:00)
[2023-07-13] MEDS: HALOPERIDOL 5 MG TABLET PO PRN (09:00)
[2023-07-13] MEDS: ALBUTEROL SULFATE HFA 90 MCG/PUFF 8 GM INHALER IH PRN (09:22)
[2023-07-13 11:31] VITALS: BP 107/60; PULSE 100; RESP 18; TEMP 98
[2023-07-13 20:45] VITALS: RESP 18
[2023-07-14] MEDS: LITHIUM CARBONATE 300 MG CAPSULE PO SCH ×3 (08:53→16:18)
[2023-07-14] MEDS: DIVALPROEX SODIUM 500 MG DR TABLET PO SCH ×3 (08:53→16:18)
[2023-07-14] MEDS: RisperiDONE 3 MG TABLET PO SCH ×2 (08:53→16:18)
[2023-07-14] MEDS: ALBUTEROL SULFATE HFA 90 MCG/PUFF 8 GM INHALER IH PRN (09:14)
[2023-07-14 10:50] VITALS: BP 96/51; PULSE 72; RESP 17; TEMP 97.6
[2023-07-14] MEDS: NICOTINE 21 MG/24 HOUR PATCH TD PRN (13:15)
[2023-07-14 16:28] LABS: ALANINE AMINOTRANSFERASE 21 U/L (12-78); ALBUMIN 3.2 g/dL (3.4-5.0); ALKALINE PHOSPHATASE 76 U/L (46-116); ANION GAP 3 mmol/L (8-16); ASPARTATE AMINOTRANSFERASE 19 U/L (15-37); BILIRUBIN,TOTAL 0.2 mg/dL (0.1-1.0); CALCIUM, TOTAL 9.2 mg/dL (8.8-10.5); CARBON DIOXIDE 31 mmol/L (22-29); CHLORIDE 102 mmol/L (98-107); CREATININE 0.61 mg/dL (0.60-1.30); GLOMERULAR FILTR. RATE CALC > 60 mL/min (>60); GLUCOSE,RANDOM 87 mg/dL (70-110); POTASSIUM 4.3 mmol/L (3.5-5.1); SODIUM SERUM 136 mmol/L (136-145); TOTAL PROTEIN, SERUM 6.4 g/dL (6.4-8.2); UREA NITROGEN, BLOOD 17 mg/dL (7-18)
[2023-07-14 20:31] VITALS: BP 99/60; PULSE 75; RESP 18; TEMP 97.7
[2023-07-14] MEDS: ZOLPIDEM TARTRATE 10 MG TABLET PO PRN (22:24)
[2023-07-15] MEDS: ALBUTEROL SULFATE HFA 90 MCG/PUFF 8 GM INHALER IH PRN (08:17)
[2023-07-15] MEDS: RisperiDONE 3 MG TABLET PO SCH ×2 (08:18→18:00)
[2023-07-15] MEDS: DIVALPROEX SODIUM 500 MG DR TABLET PO SCH ×3 (08:18→18:00)
[2023-07-15] MEDS: LORazepam 2 MG TABLET PO PRN (08:18)
[2023-07-15] MEDS: HALOPERIDOL 5 MG TABLET PO PRN (08:18)
[2023-07-15] MEDS: LITHIUM CARBONATE 300 MG CAPSULE PO SCH ×3 (08:18→18:00)
[2023-07-15 08:31] VITALS: BP 109/60; PULSE 80; RESP 19; TEMP 97.2
[2023-07-15 20:39] VITALS: RESP 18
[2023-07-16 08:47] VITALS: BP 104/60; PULSE 77; RESP 18; TEMP 97.5
[2023-07-16] MEDS: DIVALPROEX SODIUM 500 MG DR TABLET PO SCH ×3 (11:26→17:55)
[2023-07-16] MEDS: RisperiDONE 3 MG TABLET PO SCH ×2 (11:26→17:55)
[2023-07-16] MEDS: LITHIUM CARBONATE 300 MG CAPSULE PO SCH ×3 (11:26→17:55)
[2023-07-16] MEDS: NICOTINE 21 MG/24 HOUR PATCH TD PRN (18:01)
[2023-07-16 20:13] VITALS: BP 94/51; PULSE 68; RESP 18; TEMP 98
[2023-07-16] MEDS: ZOLPIDEM TARTRATE 10 MG TABLET PO PRN (21:01)
[2023-07-17 08:38] VITALS: BP 100/69; RESP 17; TEMP 97.9
[2023-07-17] MEDS: RisperiDONE 3 MG TABLET PO SCH ×2 (09:24→16:16)
[2023-07-17] MEDS: DIVALPROEX SODIUM 500 MG DR TABLET PO SCH ×3 (09:25→16:16)
[2023-07-17] MEDS: LITHIUM CARBONATE 300 MG CAPSULE PO SCH ×3 (09:25→16:16)
[2023-07-17 21:09] VITALS: RESP 18
[2023-07-17] MEDS: LORazepam 2 MG TABLET PO PRN (23:55)
[2023-07-17] MEDS: HALOPERIDOL 5 MG TABLET PO PRN (23:55)
[2023-07-18] MEDS: DIVALPROEX SODIUM 500 MG DR TABLET PO SCH ×3 (08:52→16:22)
[2023-07-18] MEDS: RisperiDONE 3 MG TABLET PO SCH ×2 (08:52→16:22)
[2023-07-18] MEDS: LITHIUM CARBONATE 300 MG CAPSULE PO SCH ×3 (09:14→16:22)
[2023-07-18 11:09] VITALS: BP 91/57; PULSE 82; RESP 18; TEMP 97
[2023-07-18 20:30] VITALS: BP 116/70; PULSE 67; RESP 18; TEMP 98.2
[2023-07-19] MEDS: RisperiDONE 3 MG TABLET PO SCH ×2 (08:42→17:30)
[2023-07-19] MEDS: HALOPERIDOL 5 MG TABLET PO PRN (08:42)
[2023-07-19] MEDS: DIVALPROEX SODIUM 500 MG DR TABLET PO SCH ×3 (08:42→17:30)
[2023-07-19] MEDS: LORazepam 2 MG TABLET PO PRN (08:42)
[2023-07-19] MEDS: LITHIUM CARBONATE 300 MG CAPSULE PO SCH ×3 (08:47→17:30)
[2023-07-19] MEDS: NICOTINE 21 MG/24 HOUR PATCH TD PRN (08:50)
[2023-07-19 11:10] VITALS: BP 115/71; PULSE 72; RESP 18; TEMP 97.7
[2023-07-19] MEDS: ZOLPIDEM TARTRATE 10 MG TABLET PO PRN (21:07)
[2023-07-19 21:49] VITALS: BP 110/80; PULSE 80; RESP 19; TEMP 98
[2023-07-20] MEDS: LITHIUM CARBONATE 300 MG CAPSULE PO SCH ×3 (09:00→17:53)
[2023-07-20] MEDS: RisperiDONE 3 MG TABLET PO SCH ×2 (09:00→17:53)
[2023-07-20] MEDS: DIVALPROEX SODIUM 500 MG DR TABLET PO SCH ×3 (09:00→17:53)
[2023-07-20 09:38] VITALS: BP 99/50; PULSE 79; RESP 16; TEMP 97.1
[2023-07-20 09:45] VITALS: BP 102/74
[2023-07-20] MEDS: ZOLPIDEM TARTRATE 10 MG TABLET PO PRN (21:16)
[2023-07-20 21:54] VITALS: BP 101/69; PULSE 82; RESP 18; TEMP 97.6
[2023-07-21] MEDS: LITHIUM CARBONATE 300 MG CAPSULE PO SCH ×3 (09:19→17:28)
[2023-07-21] MEDS: LORazepam 2 MG TABLET PO PRN (09:19)
[2023-07-21] MEDS: DIVALPROEX SODIUM 500 MG DR TABLET PO SCH ×3 (09:19→17:28)
[2023-07-21] MEDS: NICOTINE 21 MG/24 HOUR PATCH TD PRN (09:19)
[2023-07-21] MEDS: RisperiDONE 3 MG TABLET PO SCH ×2 (09:19→17:28)
[2023-07-21] MEDS: HALOPERIDOL 5 MG TABLET PO PRN (09:21)
[2023-07-21 09:41] VITALS: BP 102/55; PULSE 66; RESP 16; TEMP 98.4
[2023-07-21 23:06] VITALS: BP 105/61; PULSE 70; RESP 18; TEMP 97.6
[2023-07-22 08:00] VITALS: BP 118/71; PULSE 102; RESP 18; TEMP 98
[2023-07-22] MEDS: LITHIUM CARBONATE 300 MG CAPSULE PO SCH ×3 (11:19→18:23)
[2023-07-22] MEDS: LORazepam 2 MG TABLET PO PRN (11:19)
[2023-07-22] MEDS: RisperiDONE 3 MG TABLET PO SCH ×2 (11:19→18:23)
[2023-07-22] MEDS: DIVALPROEX SODIUM 500 MG DR TABLET PO SCH ×3 (11:19→18:23)
[2023-07-22 20:09] VITALS: BP 115/76; PULSE 62; RESP 18; TEMP 97.1
[2023-07-23] MEDS: LITHIUM CARBONATE 300 MG CAPSULE PO SCH ×3 (09:28→16:44)
[2023-07-23] MEDS: DIVALPROEX SODIUM 500 MG DR TABLET PO SCH ×3 (09:28→16:44)
[2023-07-23] MEDS: RisperiDONE 3 MG TABLET PO SCH ×2 (09:28→16:44)
[2023-07-23 09:48] VITALS: BP 115/83; PULSE 86; RESP 18; TEMP 97.7
[2023-07-23] MEDS: ALBUTEROL SULFATE HFA 90 MCG/PUFF 8 GM INHALER IH PRN (16:45)
[2023-07-23 20:38] VITALS: BP 102/64; PULSE 81; RESP 18; TEMP 98.1
[2023-07-24 08:00] VITALS: BP 124/85; PULSE 76; RESP 17; TEMP 98.2
[2023-07-24] MEDS: RisperiDONE 3 MG TABLET PO SCH ×2 (08:42→16:44)
[2023-07-24] MEDS: DIVALPROEX SODIUM 500 MG DR TABLET PO SCH ×3 (08:42→16:48)
[2023-07-24] MEDS: LITHIUM CARBONATE 300 MG CAPSULE PO SCH ×3 (08:42→16:44)
[2023-07-24] MEDS: ALBUTEROL SULFATE HFA 90 MCG/PUFF 8 GM INHALER IH PRN (09:09)
[2023-07-24] MEDS: NICOTINE 21 MG/24 HOUR PATCH TD PRN (16:45)
[2023-07-24] MEDS: HALOPERIDOL 5 MG TABLET PO PRN (20:40)
[2023-07-24] MEDS: LORazepam 2 MG TABLET PO PRN (20:40)
[2023-07-24 22:15] VITALS: BP 118/75; PULSE 75; RESP 18; TEMP 97.9
[2023-07-25] MEDS: LITHIUM CARBONATE 300 MG CAPSULE PO SCH ×3 (08:58→16:45)
[2023-07-25] MEDS: RisperiDONE 3 MG TABLET PO SCH ×2 (08:58→16:44)
[2023-07-25] MEDS: DIVALPROEX SODIUM 500 MG DR TABLET PO SCH ×3 (08:58→16:44)
[2023-07-25 09:00] VITALS: BP 110/69; PULSE 74; RESP 18; TEMP 97.7
[2023-07-25 21:46] VITALS: BP 97/60; PULSE 78; RESP 18; TEMP 97.3
[2023-07-26] MEDS: RisperiDONE 3 MG TABLET PO SCH ×2 (09:43→16:38)
[2023-07-26] MEDS: DIVALPROEX SODIUM 500 MG DR TABLET PO SCH ×3 (09:43→16:38)
[2023-07-26] MEDS: LITHIUM CARBONATE 300 MG CAPSULE PO SCH ×3 (09:44→16:38)
[2023-07-26 10:31] VITALS: BP 105/58; PULSE 73; RESP 18; TEMP 97.6
[2023-07-26] MEDS: NICOTINE 21 MG/24 HOUR PATCH TD PRN (15:53)
[2023-07-26 21:03] VITALS: BP 120/71; PULSE 87; RESP 18; TEMP 97.5
[2023-07-26] MEDS: ZOLPIDEM TARTRATE 10 MG TABLET PO PRN (22:12)
[2023-07-27] MEDS: LORazepam 2 MG TABLET PO PRN (04:24)
[2023-07-27] MEDS: LITHIUM CARBONATE 300 MG CAPSULE PO SCH ×3 (09:07→17:56)
[2023-07-27] MEDS: RisperiDONE 3 MG TABLET PO SCH ×2 (09:07→17:56)
[2023-07-27] MEDS: DIVALPROEX SODIUM 500 MG DR TABLET PO SCH ×3 (09:07→17:56)
[2023-07-27 13:26] VITALS: BP 102/65; PULSE 80; RESP 18; TEMP 98.2
[2023-07-27 20:08] VITALS: BP 120/75; PULSE 73; RESP 18; TEMP 97.9
[2023-07-28] MEDS: LITHIUM CARBONATE 300 MG CAPSULE PO SCH ×3 (09:22→16:21)
[2023-07-28] MEDS: RisperiDONE 3 MG TABLET PO SCH ×2 (09:22→16:24)
[2023-07-28] MEDS: DIVALPROEX SODIUM 500 MG DR TABLET PO SCH ×3 (09:22→16:21)
[2023-07-28] MEDS: ZOLPIDEM TARTRATE 10 MG TABLET PO PRN (20:49)
[2023-07-28 21:30] VITALS: BP 110/58; PULSE 90; RESP 18; TEMP 97.7
[2023-07-29 08:10] VITALS: BP 97/53; PULSE 82; RESP 16; TEMP 98.2
[2023-07-29] MEDS: LITHIUM CARBONATE 300 MG CAPSULE PO SCH ×3 (08:59→17:24)
[2023-07-29] MEDS: RisperiDONE 3 MG TABLET PO SCH ×2 (08:59→17:24)
[2023-07-29] MEDS: DIVALPROEX SODIUM 500 MG DR TABLET PO SCH ×3 (08:59→17:24)
[2023-07-29] MEDS: NICOTINE 21 MG/24 HOUR PATCH TD PRN (09:00)
[2023-07-29] MEDS ORDERED: INFLUENZA VIRUS VACCINE QVS 2023-24 (6MO+)/PF 60 MCG/0.5 ML SYRINGE IM. ONE (17:15)
[2023-07-29] MEDS ORDERED: PNEUMOCOCCAL VACCINE POLYVALENT 0.5 ML SYRINGE [PPSV23] IM. ONE (17:15)
[2023-07-29] MEDS: ALBUTEROL SULFATE HFA 90 MCG/PUFF 8 GM INHALER IH PRN (18:38)
[2023-07-29 20:40] VITALS: BP 104/65; PULSE 91; RESP 17; TEMP 97.9
[2023-07-29] MEDS: ZOLPIDEM TARTRATE 10 MG TABLET PO PRN (21:13)
[2023-07-29] MEDS: HALOPERIDOL 5 MG TABLET PO PRN (21:13)
[2023-07-30] MEDS: LORazepam 2 MG TABLET PO PRN ×2 (02:13→19:55)
[2023-07-30] MEDS: HALOPERIDOL 5 MG TABLET PO PRN ×2 (02:13→19:55)
[2023-07-30] MEDS: RisperiDONE 3 MG TABLET PO SCH ×2 (08:51→16:23)
[2023-07-30] MEDS: DIVALPROEX SODIUM 500 MG DR TABLET PO SCH ×3 (08:51→16:23)
[2023-07-30] MEDS: LITHIUM CARBONATE 300 MG CAPSULE PO SCH ×3 (08:52→16:23)
[2023-07-30 10:20] VITALS: BP_SYST 102; BP_SYST 91; BP_DIAS 53; BP_DIAS 62; PULSE 104; PULSE 70; RESP 18; TEMP 98.3
[2023-07-30] MEDS: ALBUTEROL SULFATE HFA 90 MCG/PUFF 8 GM INHALER IH PRN (16:25)
[2023-07-30 20:22] VITALS: BP 100/58; PULSE 101; RESP 16; TEMP 98.4
[2023-07-30] MEDS: ZOLPIDEM TARTRATE 10 MG TABLET PO PRN (21:06)
[2023-07-31 10:03] VITALS: BP 90/60; PULSE 60; RESP 20; TEMP 97.7
[2023-07-31] MEDS: DIVALPROEX SODIUM 500 MG DR TABLET PO SCH ×3 (10:54→17:17)
[2023-07-31] MEDS: RisperiDONE 3 MG TABLET PO SCH ×2 (10:54→17:17)
[2023-07-31] MEDS: LITHIUM CARBONATE 300 MG CAPSULE PO SCH ×3 (10:54→17:17)
[2023-07-31] MEDS: ALBUTEROL SULFATE HFA 90 MCG/PUFF 8 GM INHALER IH PRN (10:56)
[2023-07-31] MEDS: LORazepam 2 MG TABLET PO PRN ×2 (15:47→20:01)
[2023-07-31] MEDS: HALOPERIDOL 5 MG TABLET PO PRN (20:01)
[2023-07-31 21:34] VITALS: BP 103/75; PULSE 65; RESP 16; TEMP 97.8
[2023-07-31] MEDS: ZOLPIDEM TARTRATE 10 MG TABLET PO PRN (21:48)
[2023-08-01 09:35] VITALS: BP 90/60; PULSE 76; RESP 18; TEMP 97.6
[2023-08-01] MEDS: LITHIUM CARBONATE 300 MG CAPSULE PO SCH ×3 (09:58→17:32)
[2023-08-01] MEDS: DIVALPROEX SODIUM 500 MG DR TABLET PO SCH ×3 (09:58→17:32)
[2023-08-01] MEDS: RisperiDONE 3 MG TABLET PO SCH ×2 (09:58→17:32)
[2023-08-01] MEDS: PALIPERIDONE PALMITATE 234 MG/1.5 ML SYRINGE IM SCH (11:48)
[2023-08-01] MEDS ORDERED: LITH300C3 PO (15:38)
[2023-08-01] MEDS ORDERED: PALI234D IM (15:38)
[2023-08-01] MEDS ORDERED: RISP3TAB63 PO (15:38)
[2023-08-01] MEDS ORDERED: DIVA-112 PO (15:38)
[2023-08-01] MEDS: NICOTINE 21 MG/24 HOUR PATCH TD PRN (20:36)
[2023-08-01 22:15] VITALS: BP 106/64; PULSE 74; RESP 18; TEMP 97.3
[2023-08-02 08:15] VITALS: BP 113/69; PULSE 76; RESP 18; TEMP 97.8
[2023-08-02 09:19] LABS: COVID AG,FIA SOURCE NASAL SWAB
[2023-08-02 09:52] LABS: SARS-COV2 (COVID) ANTIGEN,FIA Negative (Negative)
[2023-08-02] MEDS: LITHIUM CARBONATE 300 MG CAPSULE PO SCH ×3 (10:46→18:53)
[2023-08-02] MEDS: RisperiDONE 3 MG TABLET PO SCH ×2 (10:46→18:53)
[2023-08-02] MEDS: DIVALPROEX SODIUM 500 MG DR TABLET PO SCH ×3 (10:46→18:53)
[2023-08-02] MEDS: ALBUTEROL SULFATE HFA 90 MCG/PUFF 8 GM INHALER IH PRN (10:47)
[2023-08-02] MEDS ORDERED: DIVA-112 PO (21:16)
[2023-08-02] MEDS ORDERED: LITH300C3 PO (21:16)
[2023-08-02] MEDS ORDERED: RISP3TAB63 PO (21:16)
[2023-08-02 23:27] VITALS: BP 95/60; PULSE 73; RESP 18; TEMP 97.8
[2023-08-03] MEDS: DIVALPROEX SODIUM 500 MG DR TABLET PO SCH ×2 (08:09→12:00)
[2023-08-03] MEDS: LITHIUM CARBONATE 300 MG CAPSULE PO SCH ×2 (08:09→12:00)
[2023-08-03] MEDS: ALBUTEROL SULFATE HFA 90 MCG/PUFF 8 GM INHALER IH PRN (08:09)
[2023-08-03] MEDS: RisperiDONE 3 MG TABLET PO SCH (08:09)
[2023-08-03 09:07] VITALS: BP 96/48; PULSE 82; RESP 18; TEMP 96.2
== END 2023-08-03 12:30 | DRG 750 ==
LOC: EMS 09:15 → EDBD 09:15 → 3EC 16:20 → 3EX 07-18 06:09 → 3EI 07-20 11:10
PROVIDERS: ADMIT Psychiatry & Neurology Psychiatry; ATTEND Psychiatry & Neurology Psychiatry
DX: F20.9 Schizophrenia, unspecified (principal); F10.10 Alcohol abuse, uncomplicated; F41.9 Anxiety disorder, unspecified; G47.00 Insomnia, unspecified; K59.00 Constipation, unspecified; F12.10 Cannabis abuse, uncomplicated; Z20.822 Contact with and (suspected) exposure to COVID-19
CPT/HCPCS: 80053; 80164; 80178; 80307; 81003; 84703; 90686; 90732; 99291; G0378; J1200; J1630; J2060; J3535